=== PATIENT | female | born 1945 | race Caucasian/White ===

== ENCOUNTER 2016-08-25 13:26 | Inpatient (IN) | payer MEDICARE, BC ==
[~2016-08-25] VITALS: Ht 167.6 cm; Wt 37.5 kg
[~2016-08-25 13:26] MED LIST: APAP325 MG PO; ASPIRIN EC81 M1 PO; CELEXA20 MG PO; CLARITIN 10 MG10 MG PO; GEODON20 M1 IM; KLONOPIN0.5 MG PO; LEVAQUIN500 MG PO; MILK OF MAGNESI30 ML PO; MYLANTA / MAALO30 ML PO; NAMENDA5 MG PO; PROMOD LIQUID P30 M1 PO; PROMOLAXIN100 MG PO; ROBITUSSIN DM 110 ML PO; SEROQUEL100 MG PO; VISINE15 ML EACH EYE; VITAMIN B-121000 MCG PO
[2016-08-25 14:41] LABS: BASOPHILS 0.4 % (0.0-2.0); EOSINOPHILS 2.1 % (0-7); HEMATOCRIT 49.2 % (36.0-48.0); HEMOGLOBIN 15.5 g/dL (12-16); IMMATURE GRANULOCYTES 0.4 % (0-5); LYMPHOCYTES 19.2 % (15-50); MCHC 31.5 g/dL (31.0-37.0); MCV 104.7 fL (80.0-100.0); MEAN PLATELET VOLUME 13.3 fL (7.4-10.4); MONOCYTES 8.5 % (2-11); NEUTROPHILS 69.4 % (40-80); RDW 16.1 % (11.5-14.5); WBC 8.6 10x3/uL (4.8-10.8)
[2016-08-25 14:42] LABS: PLATELET COUNT 154 10x3/uL (130-400)
[2016-08-25 15:16] LABS: ALBUMIN 3.7 g/dL (3.4-5.0); BILIRUBIN - TOTAL 0.67 mg/dL (0.2-1.3); CALCIUM 8.9 mg/dL (8.5-10.1); CARBON DIOXIDE 27.8 mmol/L (21.0-32.0); CREATININE - SERUM 1.6 mg/dL (0.6-1.3); POTASSIUM - SERUM 3.3 mmol/L (3.5-5.1)
[2016-08-25 15:30] LABS: APPEARANCE HAZY (CLEAR); BILIRUBIN NEGATIVE (NEGATIVE); COLOR YELLOW (YELLOW); GLUCOSE NEGATIVE (NEGATIVE); KETONE NEGATIVE (NEGATIVE); LEUKOCYTE ESTERASE 2+ (NEGATIVE); NITRITE POSITIVE (NEGATIVE); PROTEIN TRACE mg/dL (NEGATIVE); SPECIFIC GRAVITY 1.025 (1.005-1.020); UROBILINOGEN NORMAL (NORMAL)
[2016-08-25 15:31] LABS: UDS - AMPHET NEGATIVE QUAL (NEGATIVE); UDS - BARB NEGATIVE QUAL (NEGATIVE); UDS - BENZO NEGATIVE QUAL (NEGATIVE); UDS - COCAINE NEGATIVE QUAL (NEGATIVE); UDS - METH NEGATIVE QUAL (NEGATIVE); UDS - OPIATE NEGATIVE QUAL (NEGATIVE); UDS - PCP NEGATIVE QUAL (NEGATIVE); UDS - THC NEGATIVE QUAL (NEGATIVE)
[2016-08-25 15:32] LABS: ANION GAP 12.5 mmol/L (8-16)
[2016-08-25 15:32] LABS: BACTERIA MANY /hpf (NONE SEEN); EPITHELIAL CELLS 0-5 /hpf (0-5); RED CELLS - URINE 0-5 /hpf (0-5); WHITE CELLS - URINE 25-50 /hpf (0-5)
--- NOTE | 2016-08-25 18:52 | NUR ---
RECEIVED PT VIA BED FROM ER NURSE. PT SLEEPING ON ARRIVAL. IV SEEN TO LEFT WRIST. CEFTRIAXONE RESTARTED PER ORDER WHEN GOT TO ROOM. ROUSE SEEN WITH CLOULDY YELLOW URINE. PT IS NON-VERBAL. FAMILY MEMBERS ARE AT BEDSIDE. WILL CONTINUE TO MONITOR.
[2016-08-25] MEDS ORDERED: ARICEPT5 MG PO (19:20)
[2016-08-25] MEDS ORDERED: PROMOD LIQUID P30 M1 PO (19:20)
[2016-08-25] MEDS ORDERED: ATIVAN1 MG PO (19:20)
--- NOTE | 2016-08-25 19:23 | NUR ---
CALL PLACED FOR DNR CODE STATUS THIS IS FROM THE [facility]. NEW ORDERS RECEIVED.
[2016-08-25 19:39] VITALS: BP 136/79
[2016-08-25 22:07] VITALS: BP 136/79
[2016-08-25 23:13] VITALS: BP 124/66
[2016-08-26 02:42] VITALS: BP 136/79; BMI 11.9
[2016-08-26 04:04] VITALS: BP 122/83
--- NOTE | 2016-08-26 05:01 | NUR ---
NURSE ROUNDS 20:00 - PT LYING IN BED, LYING ON HER STOMACH, EYES CLOSED, RESPIRATIONS EVEN AND UNLABORED. PT WILL NOT OPEN HER EYES, BUT DOES WITHDRAW WHEN TOUCHED. CONTINUE TO MONITOR CLOSELY. BED LOW, CALL LIGHT IN REACH, SIDE RAILS X 2, HOB 20 DEGREES, BED ALARM ON.
--- NOTE | 2016-08-26 05:40 | NUR ---
PT LYING IN BED, EYES CLOSED, RESPIRATIONS EVEN AND UNLABORED. PT STILL NOT ROUSABLE TO VERBAL STIMULI, BUT DOES WITHDRAW HER HANDS WHEN TOUCHED. PT DID REFUSE TO HAVE HER AM LABS DRAWN. CONTINUE TO MONITOR CLOSELY. BED LOW, CALL LIGHT IN REACH, SIDE RAILS X 2, HOB 20 DEGREES.
--- NOTE | 2016-08-26 07:37 | NUR ---
AM ROUNDING- PT LAYING IN BED ON BACK RESTING, MUMBLING TO HERSELF. PT IS NON-VERBAL PER REPORT FROM PAD EXTRACTION TENDER NURSEKHANG. IV SEEN TO LEFT WRIST WITH D5 1/2 NS W 10 K+ RUNNING AT 125CC. ON ROOM AIR. PT IS DISORIENTED/CONFUSED PER REPORT FROM PAD EXTRACTION TENDER NURSEKHANG. PT IS A TOTAL ASSIST. ROUSE CATHETER WITH CLOUDY YELLOW URINE SEEN. REFUSED SCDS PER REPORT FROM PAD EXTRACTION TENDER NURSE KHANG. BED ALARM IS ON, SIDE RAILS ARE UP. NO NEED AT THIS TIME. WILL CONTINUE TO MONITOR.
[2016-08-26 07:56] VITALS: BP 131/109
--- NOTE | 2016-08-26 07:59 | NUR ---
IV FLUIDS DECREASED TO 50CC/HR ORDERED. WILL CONTINUE TO MONITOR.
--- NOTE | 2016-08-26 08:06 | NUR ---
PT IN STAT ORDERS FOR BMP ORDERED AND CALLED LAB TO LET THEM KNOW WE WILL NEED AT STAT BMP. LAB STATED THEY WILL BE RIGHT UP.
[2016-08-26 08:33] LABS: BASOPHILS 0.3 % (0.0-2.0); EOSINOPHILS 4.3 % (0-7); HEMATOCRIT 48.2 % (36.0-48.0); HEMOGLOBIN 14.7 g/dL (12-16); IMMATURE GRANULOCYTES 0.4 % (0-5); LYMPHOCYTES 21.5 % (15-50); MCH 32.5 pg (26.0-34.0); MCHC 30.5 g/dL (31.0-37.0); MCV 106.4 fL (80.0-100.0); MEAN PLATELET VOLUME 13.2 fL (7.4-10.4); MONOCYTES 6.3 % (2-11); NEUTROPHILS 67.2 % (40-80); PLATELET COUNT 159 10x3/uL (130-400); RBC 4.53 10x6/uL (4.00-5.40); RDW 16.3 % (11.5-14.5); WBC 10.6 10x3/uL (4.8-10.8)
--- NOTE | 2016-08-26 08:53 | NUR ---
DR. GOLDSMITH CALLED TO SEE WHAT LAB (BMP) RESULTS WERE. INFORMED HIM THAT THEY ARE STILL PENDING. DR. ANDERSON STATED TO D/C FLUIDS B/C NA+ IS TOO HIGH. REQUESTED TO CALL HIM BACK SOON LABS RESULTS WERE RECEIVED OR TO NOTIFY DR. ABREU SOON LAB RESULTS WERE BACK IF HE DID NOT ANSWER. D/C PTS FLUIDS ORDERED. AWAITING LAB RESULTS. WILL CONTINUE TO MONITOR.
[2016-08-26 08:59] LABS: CALCIUM 8.3 mg/dL (8.5-10.1); CARBON DIOXIDE 28.4 mmol/L (21.0-32.0); POTASSIUM - SERUM 3.7 mmol/L (3.5-5.1)
[2016-08-26 09:01] LABS: ANION GAP 13.3 mmol/L (8-16); CREATININE - SERUM 1.1 mg/dL (0.6-1.3)
--- NOTE | 2016-08-26 09:07 | NUR ---
899- PAGED DR. ANDERSON WITH LAB RESULTS. 904- DR. ANDERSON CALLED BACK. INFORMED HIM THAT LABS WERE FOLLOWS: NA+ 171 CH- 133 K+- 3.7 DR. ANDERSON STATED TO INCREASE IV FLUIDS TO 150CC/HR AND ORDER BMP IN EXACTLY 6 HOURS. LABS ORDERED FOR 1500, IV FLUIDS INCREASED TO 150CC/HR. WILL CONTINUE TO MONITOR.
--- NOTE | 2016-08-26 09:56 | NUR ---
PAGED DR. ANDERSON TO CLARIFY IV FLUID ORDER. AWAITING CALLBACK WILL CONTINUE TO MONITOR.
--- NOTE | 2016-08-26 10:04 | NUR ---
COMBATIVE AND REFUSING SCD'S
[2016-08-26 11:37] VITALS: BP 125/86
--- NOTE | 2016-08-26 11:49 | NUR ---
1010- MANDO, NURSE FROM THE [facility] CALLED TO CHECK ON PT.
[2016-08-26 12:25] VITALS: Ht 167.6 cm; Wt 37.5 kg
--- NOTE | 2016-08-26 15:16 | NUR ---
PRODUCTION PLANNER SCHEDULER CAME TO INFORM ME THAT PTS B/P WAS 193/86. I THEN WENT AND INFORMED AC BERRY NP THAT WAS ON UNIT. AC CAME BACK TO ME AND STATED TO RE-CHECK PTS B/P SINCE THAT WAS THE ONLY ONE THAT HAS BEEN HIGH AT THIS TIME. ANNETTA QUINTERO IS RECHECKING B/P NOW. WILL CONTINUE TO MONITOR.
--- NOTE | 2016-08-26 15:29 | NUR ---
PLACED MONITOR ON PT. SHOWING SR, HR 86.
[2016-08-26 15:40] VITALS: BP 137/66
[2016-08-26 15:59] LABS: ANION GAP 10.8 mmol/L (8-16); CALCIUM 8.2 mg/dL (8.5-10.1); CARBON DIOXIDE 28.4 mmol/L (21.0-32.0); CREATININE - SERUM 1.2 mg/dL (0.6-1.3); HEMOGLOBIN A1C 5.7 % (4.8-6.0); POTASSIUM - SERUM 3.2 mmol/L (3.5-5.1)
--- NOTE | 2016-08-26 16:02 | NUR ---
LAB CALLED TO REPORT TO ME A CRTICAL LAB. NA+ 166 CHLORIDE 130 WILL CONTINUE TO MONITOR.
--- NOTE | 2016-08-26 16:15 | NUR ---
PAGED DR. ANDERSON REGARDING PTS CRITCAL LAB. AWAITING CALLBACK.
--- NOTE | 2016-08-26 16:50 | NUR ---
Patient Name: JUAN M GARDNER Admission Status: ER Accout number: [id number] Admission Date: 08-25-2016 : 1945 Admission Diagnosis: Attending: [place] Current LOS: 1 Anticipated DC Date: Planned Disposition: Assisted Living Primary Insurance: MEDICARE A & B PLANNED EXTERNAL PROVIDER: [facility] Discharge Planning Comments: * Is the patient Alert and Oriented? No 0 * How many steps to enter\exit or inside your home? NONE 0 * PCP [facility] 0 * Pharmacy [facility] 0 * Preadmission Environment Assisted Living 0 * Facility Name [facility] 0 * ADLs Partial Dependent 0 * Partial ADLs (Assistance needed) Eating Medication Management 0 * Equipment None 0 * Other Equipment NO MEDICAL EQUIPMENT PROVIDER PREFERENCE 0 * List name and contact numbers for known caregivers / representatives who currently or will assist patient after discharge: HENRY GARDNER, SPOUSE, 0 * Community resources currently utilized Assisted Living 0 * Please name any agencies selected above. [facility] [phone] 0 * Additional services required to return to the preadmission environment? No 0 * Can the patient safely return to the preadmission environment? Yes 0 * Has this patient been hospitalized within the prior 30 days at any hospital? No 0 CM MET WITH PT AND SPOUSE IN ROOM TO DISCUSS DISCHARGE PLANNING AND NEEDS. PT CONFUSED. SPOUSE REPORTS PT LIVING AT [facility] FOR THE PAST TWO YEARS.. PT HAS NO MEDICAL EQUIPMENT AND NO OUTSIDE SERVICES ASSISTING IN THE FACILITY. PT HAS 24 HOUR 7 DAYS WEEKLY CAREGIVER ASSISTANCE. CM DISCUSSED AVAILABILITY OF HOME HEALTH, REHAB SERVICES AND MEDICAL EQUIPMENT. SPOUSE DENIES DISCHARGE NEEDS AT THIS TIME. PT'S SPOUSE REPORTS THAT STAFF AT [facility] HAS RECENTLY CHANGED AND THE CURRENT STAFF ARE NOT USED TO CARING FOR PT AND HE IS HOPEFUL THAT THAT WILL CHANGE QUICKLY. HE FEELS HIS IS SAFE AND THE [facility] AND SHE WILL RETURN THERE AT DISCHARGE. IMPORTANT MESSAGE FROM MEDICARE PROVIDED AND EXPLAINED. FOR DISCHARGE, NURSE REPORT TO BE CALLED TO THE [facility] AT [phone]; FAX DISCHARGE INFORMATION TO THE [facility] AT [phone]. IF PT IS ABLE TO TRANSPORT SAFELY VIA VAN, [facility] TO [facility]ANGE [facility], OTHERWISE, PT MAY HAVE TO TRANSPORT VIA AMBULANCE FOR HER SAFETY. Nephrologist: Alfa Melvin
--- NOTE | 2016-08-26 18:33 | NUR ---
PT LAYING IN BED RESTING, FAMILY MEMBERS AT BEDSIDE. BED ALARM IS ON. NO NEED AT THIS TIME. WILL CONTINUE TO MONITOR.
--- NOTE | 2016-08-26 19:03 | NUR ---
WHILE TRYING TO GIVE PT PRN MEDICINE CRUSHED UP WITH WARM WATER, PT SPIT IT UP WHILE COUGHING AND SOME OF THE SECRETIONS WENT INTO MY MOUTH. CRYOGENICS ENGINEER NOTIFIED. GOING TO CHOKE SETTER OFFICE WHEN DONE WITH REPORT.
[2016-08-26 20:57] VITALS: BP 195/70
[2016-08-26 23:00] LABS: CARBON DIOXIDE 27.8 mmol/L (21.0-32.0); CREATININE - SERUM 1.1 mg/dL (0.6-1.3); POTASSIUM - SERUM 3.5 mmol/L (3.5-5.1)
[2016-08-26 23:06] LABS: ANION GAP 10.7 mmol/L (8-16)
--- NOTE | 2016-08-26 23:36 | NUR ---
DR. ANDERSON JUST CALLED INQUIRING ABOUT PTS LABS, AND GAVE TELEPHONE ORDER TO DECREASE FLUIDS TO 100MLS/HR.
--- NOTE | 2016-08-26 23:38 | NUR ---
DR. ANDERSON CALLED BACK, WANTS FLUIDS DECREASED TO 20MLS/HR.
[2016-08-27 00:34] VITALS: BP 134/78
--- NOTE | 2016-08-27 02:18 | NUR ---
NURSE ROUNDS 19:30 - PT LYING IN BED, EYES CLOSED, RESPIRATIONS EVEN AND UNLABORED, DEMONSTRATING LETHARGY, HARD TO ROUSE. PT IS CONFUSED AND DISORIENTED X 3, UNABLE TO FOLLOW SIMPLE COMMANDS. PT DID REFUSE HER 2100 MEDICATIONS, SHE WOULD NOT COOPERATE OR ATTEMPT TO TAKE THEM. IV INFUSING, ROUSE CATH IN PLACE. CONTINUE TO MONITOR CLOSELY. BED LOW, CALL LIGHT IN REACH, SIDE RAILS X 2, HOB 20 DEGREES, BED ALARM ON.
[2016-08-27 04:31] VITALS: BP 130/46
[2016-08-27 05:55] LABS: BASOPHILS 0.3 % (0.0-2.0); HEMOGLOBIN 11.8 g/dL (12-16); IMMATURE GRANULOCYTES 1.1 % (0-5); LYMPHOCYTES 23.9 % (15-50); MCH 32.2 pg (26.0-34.0); MCHC 30.9 g/dL (31.0-37.0); MEAN PLATELET VOLUME 13.7 fL (7.4-10.4); MONOCYTES 5.7 % (2-11); RBC 3.66 10x6/uL (4.00-5.40); RDW 15.8 % (11.5-14.5)
[2016-08-27 06:17] LABS: CALCIUM 7.9 mg/dL (8.5-10.1); CARBON DIOXIDE 24.6 mmol/L (21.0-32.0)
[2016-08-27 06:23] LABS: HEMATOCRIT 38.2 % (36.0-48.0); MCV 104.4 fL (80.0-100.0); PLATELET COUNT 124 10x3/uL (130-400); WBC 7.2 10x3/uL (4.8-10.8)
[2016-08-27 06:47] LABS: ANION GAP 13.3 mmol/L (8-16)
[2016-08-27 06:48] LABS: POTASSIUM - SERUM 2.9 mmol/L (3.5-5.1)
[2016-08-27 07:40] VITALS: BP 121/59
[2016-08-27 07:55] LABS: MAGNESIUM - SERUM 2.2 mg/dL (1.8-2.4); PHOSPHOROUS 2.6 mg/dL (2.5-4.9)
--- NOTE | 2016-08-27 08:03 | NUR ---
INITIATED PIGGY BACK POTASSIUM ORDERED FOR LOW K OF 2.9. PT IS VERY LETHARGIC AND WOULDNT WAKE UP ENOUGH TO EAT OR SWALLOW HER PILLS AT THIS TIME, WILL TRY AGAIN SOON.
[2016-08-27 10:21] LABS: CALCIUM 8.2 mg/dL (8.5-10.1); CARBON DIOXIDE 27.2 mmol/L (21.0-32.0); CREATININE - SERUM 0.9 mg/dL (0.6-1.3); MAGNESIUM - SERUM 2.2 mg/dL (1.8-2.4)
[2016-08-27 10:22] LABS: ANION GAP 12.8 mmol/L (8-16)
[2016-08-27 11:48] VITALS: BP 121/43
--- NOTE | 2016-08-27 15:14 | NUR ---
PATIENT RESTING QUIETLY WITH EYES CLOSED, RESPIRATIONS DEEP AND EVEN. HER DAUGHTER IS AT THE BEDSIDE WITH MANY QUESTIONS. ANSWERED I COULD. AMALIA DID NOT AWAKE TO EAT LUNCH. ATE MOST BKFST AND 100% OF SUPPER LAST NIGHT PER HER STATEMENT. ROUSE PATENT TO BEDISDE DRAINAGE. IVF INFUSING PER ORDERS.
--- NOTE | 2016-08-27 16:14 | CN ---
PATIENT NAME:JUAN M GARDNER MEDICAL RECORD: [id number] : 41 LOCATION:D. D.2105 ADMIT DATE: 08/25/16 ACCOUNT: [id number] CONSULTING PHYSICIAN: MIHAELA ANDERSON MD REFERRING PHYSICIAN: DEVIN RAMÍREZ M.D. DATE OF CONSULTATION: 08/25/2016 Renal Consultation REASON FOR CONSULTATION: hypernatremia, cystitis on admission, confusion, lethargy, weakness, Alzheimer dementia, and depression. HISTORY OF PRESENT ILLNESS: This is a 71-year-old female that was admitted from the [facility] with a past medical history of Alzheimer dementia, COPD, depression, cystitis, weakness, confusion, and lethargy and had fell on Thursday. She presented to the Emergency Room with acute kidney injury and severe hypernatremia with a ____. Unfortunately, severe, sodium level in is magnitude will undoubtedly cause neurological sequelae. REVIEW OF SYSTEMS: As above and unattainable from the patient. PAST MEDICAL HISTORY: Alzheimer dementia, COPD, depression, B12 deficiency, allergic rhinitis, and chronic constipation. HOME MEDICATIONS: Documented in the H&P. Ativan 1 mg q.i.d. p.r.n. agitation, Aricept 5 mg q.h.s., ProMod liquid 30 mg p.o. daily, Claritin 10 mg daily, B12 of 1000 mcg p.o. daily, docusate sodium 100 mg b.i.d., aspirin 81 a day, Klonopin 0.5 at bedtime, Celexa 20 daily, Seroquel 100 b.i.d., Visine p.r.n., Milk of magnesia 30 mL p.r.n., ____ Maalox plus 50 mL p.r.n. q.4 hours, Robitussin-DM 10 mL q.4 hours p.r.n. congestion, and Tylenol 650. She is on Namenda 10 mg b.i.d. FAMILY HISTORY: Unobtainable and the H&P is unobtainable as well. PAST SURGICAL HISTORY: Not listed in the H&P and is unobtainable. The past medical history has been obtained from her H&P. ALLERGIES: NKDA per 09/03/2015. PHYSICAL EXAMINATION: VITAL SIGNS: Blood pressure 136/79. 100 Pulse ox, 76 pulse, 16 respiratory rate, 98.6 temperature. GENERAL: Altered mental status. HEENT: Anicteric. Mucous membranes are moist. She does not follow commands. Pupils react to light. Extraocular muscles are intact. NECK: Nontender. No JVD or lymphadenopathy. No meningeal signs. CHEST: Regular rhythm. S1 and S2. Clear lungs bilaterally. EXTREMITIES: +2 femoral pulses, +2 brachial pulses even and bilateral. ABDOMEN: Soft and nontender. No appreciable hepatosplenomegaly. SKIN: Decreased skin turgor. Dry mucous membranes. GENITOURINARY: Aguilar catheter to gravity. LABORATORY DATA: On admission, white blood cell count 8600, H&H 15.5 and 49 with an MCV of 104 and a platelet count of 154. Sodium was 172. Urinalysis: specific gravity 102.5, trace protein, positive nitrite, 25-50 white blood cells CONSULT REPORT [id number] JUAN M GARDNER with many bacteria. The rest of the chemistry is documented in the chart. ASSESSMENT AND PLAN: 1. Hypernatremia with intravascular volume depletion. Hypotonic IV fluids with KCl. We will have to monitor her sodium level and currently, her rate is at 125. 2. Alzheimer dementia, now with hypernatremia, the severe level, unknown duration of hypernatremia. 3. Chronic constipation per her medications. 4. Allergic rhinitis per her medications. She has been on Visine. 5. Altered mental status due to cystitis. 6. Cystitis on admission. She has been started on antibiotics and urine culture have been submitted. 7. Suspect protein malnutrition when she is corrected with IV fluids as her hematocrit is 49. 8. Acute kidney injury. IV hydration along with cystitis. We will follow her BUN and creatinine. PLAN: 1. Hypotonic IV fluids D5 half normal saline with 10 mEq of KCl at 125 an hour. 2. Monitor electrolytes and BMP. 3. We will follow with you. 4. Follow up urine culture results. 5. Very critically ill and is a DNR, otherwise she would be in the intensive care unit. TRANSINT:[id number] Voice Confirmation ID: [id number] DOCUMENT ID: [id number] MIHAELA ANDERSON MD at 1614 CC: [id number] DICTATION DATE: 08/27/16702 HANDICAPPER HARNESS RACING: 08/27/16 0736 ADM IN [facility] [address] [id number]
[2016-08-27 16:18] VITALS: BP 116/52
[2016-08-27 16:42] LABS: ANION GAP 13.6 mmol/L (8-16); CALCIUM 8.1 mg/dL (8.5-10.1); CREATININE - SERUM 0.8 mg/dL (0.6-1.3); MAGNESIUM - SERUM 2.3 mg/dL (1.8-2.4); POTASSIUM - SERUM 3.6 mmol/L (3.5-5.1)
--- NOTE | 2016-08-27 19:02 | NUR ---
IV RESITED TO THE LEFT AC X1 ATTEMPT. AND DAUGHTER AT THE BEDSIDE. SHE ATE VERY LITTLE OF HER SUPPER. SHE IS WITHOUT S/S OF PAIN/ DISTRESS.
--- NOTE | 2016-08-27 21:07 | NUR ---
PT LYING IN BED, CONFUSED, REACHING INTO THEIR TRYING TO GRAB AT SOMETHING THAT IS UNSEEN. PTS /FAMILY MEMBER WAS IN THERE WHEN I ROUNDED AT 19:15, AND STATED THERE HAVE BEEN SEVERAL NEW ISSUES WITH PT SINCE THERE HAVE BEEN SOME STAFFING CHANGES AT THE [facility] RECENTLY. DENIES ANY NEEDS FOR PT. BED ALARM IS ON. CONTINUE TO MONITOR CLOSELY.
[2016-08-27 22:01] VITALS: BP 118/75
[2016-08-28 01:10] VITALS: BP 134/78
--- NOTE | 2016-08-28 01:27 | NUR ---
PT LYING IN BED, EYES CLOSED, RESPIRATIONS EVEN AND UNLABORED. PT BECOMES COMBATIVE WHEN TRYING TO REPOSITION HER BUT OTHERWISE IS QUIET. CONTINUE TO MONITOR CLOSELY. BED LOW, CALL LIGHT IN REACH, SIDE RAILS X 2, HOB 20 DEGREES, BED ALARM ON.
[2016-08-28 02:40] LABS: HEMOGLOBIN 11.7 g/dL (12-16); MCH 32.7 pg (26.0-34.0); MCHC 33.4 g/dL (31.0-37.0); MEAN PLATELET VOLUME 12.1 fL (7.4-10.4); NEUTROPHILS 59.3 % (40-80); PLATELET COUNT 118 10x3/uL (130-400); RBC 3.58 10x6/uL (4.00-5.40); RDW 14.4 % (11.5-14.5); WBC 6.2 10x3/uL (4.8-10.8)
[2016-08-28 02:43] LABS: MCV 97.8 fL (80.0-100.0)
--- NOTE | 2016-08-28 02:46 | NUR ---
RECHEDULING ADDED LABS SO PT WILL NOT HAVE TO ENDURE MULTIPLE NEEDLE STICKS
[2016-08-28 02:55] LABS: CREATININE - SERUM 0.8 mg/dL (0.6-1.3); MAGNESIUM - SERUM 2.1 mg/dL (1.8-2.4); PHOSPHOROUS 2.7 mg/dL (2.5-4.9)
[2016-08-28 02:56] LABS: ANION GAP 10.7 mmol/L (8-16); POTASSIUM - SERUM 2.7 mmol/L (3.5-5.1)
[2016-08-28 05:03] VITALS: BP 134/71
[2016-08-28 08:00] VITALS: BP 122/92
--- NOTE | 2016-08-28 08:28 | NUR ---
PTS POTASSIUM LOW 2.9 TRIED TO REPLACE PER ELECTROLYTE PROTOCOL HOWEVER PT REFUSED TO LET ME SEE HER IV. PUMP KEEPS SAYING OCCLUDED AND HER IV IS IN HER L.AC BUT PT KEEPS HER ARMS BENT AND STARTING YELLING "NO, WHY ARE YOU TRYING ME" TRIED TO REORIENT PT HOWEVER SHE CONTINUES TO KEEP HER ARM STIFF AND NOT ALLOW ME TO MESS WITH IT. WILL ALLOW HER TO REST AND TRY AGAIN SOON, MAYBE BETTER WHEN FAMILY IS BACK UP HERE. NO FURTHER NEEDS AT THIS TIME. CL IN REACH. BED IN LOWEST, SIDE RAILS X2 AND BUILT IN BED ALARM ON. WILL CPOC.
--- NOTE | 2016-08-28 10:20 | NUR ---
Nutrition Follow Up: Chart reviewed. Pt is confused and combative at times. Diet: No added salt; regular solids with honey thick liquids PO Intake: 42% (3 meal avg) I>O +BM 08/26/16 Labs and meds noted Pt with fair po intake at this time. Rec changing diet to Regular (instead of SAM) with regular solids and honey thick liquids per EQUITY DIRECTOR. Will send Mighty Shakes with meals. RD following.
--- NOTE | 2016-08-28 11:10 | NUR ---
ADMINISTERED MORNING MEDICATIONS CRUSHED IN APPLESAUCE WITH THE ASSISTANCE OF PTS DAUGHTER. PT DOES MUCH BETTER WITH FAMILY AT BEDSIDE. D/C PTS L.AC PIV WITH CATHETER TIP FULLY INTACT. SITE WAS INFLITRATED. UNABLE TO SITE NEW ACCESS R/T PT NOT HAVING ANY NOTICEABLY VEINS. CALLED VASCULAR NURSE TO TRY FOR IV AND ALSO DRAW BLOOD R/T LAB NOT BEING ABLE TO FIND A VEIN TO DRAW FROM. PT STILL VERY DEHYDRATED WITH VERY POOR INTAKE. NEW STAT LOC PLACED TO PTS L.INNER THIGH R/T OLD STAT LOC BREAKING. PT RESTING QUIETLY IN BED WITH DAUGHTER AT BEDSIDE. PT IS STILL VERY DISORIENTED/CONFUSED BUT SHE IS CURRENTLY BEING VERY SWEET AND COOPERATIVE. NO FURTHER NEEDS AT THIS TIME. CL IN REACH, BED IN LOWEST, SIDE RAILS X2 WITH BUILT IN BED ALARM ON. WILL CPOC.
[2016-08-28 12:00] VITALS: BP 119/58
--- NOTE | 2016-08-28 13:32 | NUR ---
VASCULAR NURSE GOT ACCESS VIA L.FA. WILL NOW INTIATED EP FOR POTASSIUM REPLACEMENT.
--- NOTE | 2016-08-28 13:57 | NUR ---
ATTEMPTED TO CALL [facility] HOWEVER NURSES WERE "IN A MEETING" AND REQUESTED I CALL BACK IN 20-30 MINS. WILL TRY THEN.
[2016-08-28 14:23] LABS: CALCIUM 8.3 mg/dL (8.5-10.1); CARBON DIOXIDE 30.6 mmol/L (21.0-32.0); CREATININE - SERUM 0.9 mg/dL (0.6-1.3); MAGNESIUM - SERUM 2.2 mg/dL (1.8-2.4)
[2016-08-28 14:27] LABS: ANION GAP 9.7 mmol/L (8-16); POTASSIUM - SERUM 3.3 mmol/L (3.5-5.1)
[2016-08-28 16:00] VITALS: BP 137/52
--- NOTE | 2016-08-28 20:00 | NUR ---
CONTACTED BY [facility]. INSTRUCTED TO INCREASE IV FLUIDS TO 75ML/HR. AND TO CONTACT IF SODIUM LEVEL INCREASES
[2016-08-28 20:54] LABS: CALCIUM 7.9 mg/dL (8.5-10.1); CARBON DIOXIDE 29.2 mmol/L (21.0-32.0); CREATININE - SERUM 1.1 mg/dL (0.6-1.3); POTASSIUM - SERUM 3.2 mmol/L (3.5-5.1)
[2016-08-29] VITALS: BP 142/75; BP 156/80
--- NOTE | 2016-08-29 00:25 | NUR ---
OPTOMETRY TEACHER AT BEDSIDE TO OBTAIN VITALS, CALL LIGHT IN REACH. WILL CONTINUE WITH PLAN OF CARE.
[2016-08-29 02:42] LABS: BASOPHILS 0.2 % (0.0-2.0); EOSINOPHILS 6.3 % (0-7); HEMOGLOBIN 11.7 g/dL (12-16); IMMATURE GRANULOCYTES 1.7 % (0-5); LYMPHOCYTES 25.3 % (15-50); MCH 32.1 pg (26.0-34.0); MCHC 31.6 g/dL (31.0-37.0); MEAN PLATELET VOLUME 12.2 fL (7.4-10.4); MONOCYTES 7.3 % (2-11); NEUTROPHILS 59.2 % (40-80); PLATELET COUNT 123 10x3/uL (130-400); RBC 3.65 10x6/uL (4.00-5.40); RDW 14.6 % (11.5-14.5); WBC 5.9 10x3/uL (4.8-10.8)
[2016-08-29 02:44] LABS: MCV 101.4 fL (80.0-100.0)
[2016-08-29 02:55] LABS: ANION GAP 9.8 mmol/L (8-16); CALCIUM 8.1 mg/dL (8.5-10.1); CARBON DIOXIDE 28.5 mmol/L (21.0-32.0); PHOSPHOROUS 2.7 mg/dL (2.5-4.9); POTASSIUM - SERUM 3.3 mmol/L (3.5-5.1)
--- NOTE | 2016-08-29 07:40 | NUR ---
ASSESSMENT DONE. PT SLEEPING. AROUSED PT BY SHAKING. NO DISTRESS NOTED. BED DOWN, SIDE RAILS UP X2. CALL LIGHT WITH INREACH. WILL CONT. TO MONITOR.
[2016-08-29 08:00] VITALS: BP 146/71
--- NOTE | 2016-08-29 08:55 | NUR ---
PT'S DAUGHTER HERE ATTEMPTINGT TO FEED BREAKFAST.
--- NOTE | 2016-08-29 09:40 | NUR ---
FAMILY MEMBER ASSISTS WITH MEAL. WILL MONITOR NEEDS.
[2016-08-29 12:00] VITALS: BP 97/41
--- NOTE | 2016-08-29 18:17 | NUR ---
PT SLEEPING. FAMILY IN ROOM. NO DISTRESS NOTED. APPEARS COMFORTABLE. WILL CONT. TO MONITOR.
--- NOTE | 2016-08-29 18:50 | NUR ---
PT ATTEMPTING TO GET OUT OF BED. SCREAMING PLEASE HELP ME. PULLING AT ROUSE AND LINE. STAFF SITTING IN ROOM WITH PT ATTMEPTING TO CALM PT.
[2016-08-29 19:24] LABS: ANION GAP 11.5 mmol/L (8-16); CALCIUM 8.5 mg/dL (8.5-10.1); CARBON DIOXIDE 30.7 mmol/L (21.0-32.0); POTASSIUM - SERUM 3.2 mmol/L (3.5-5.1)
--- NOTE | 2016-08-29 19:50 | NUR ---
PT PLACED ON MENA PAD. PT NEARLY OUT OF BED WITH BED ALARM ARMED AND NOT SOUNDING. CHANGED PT BMP TO Q8 PER NURSING MESSAGE PLACED BY DR ANDERSON ON 08/29
[2016-08-29 22:35] VITALS: BP 117/45
--- NOTE | 2016-08-30 01:14 | NUR ---
PT RESTING SOUNDLY WITHOUT C/O OR DISTRESS NOTED. CALL LIGHT IS WITHIN REACH. NO NEEDS VOICED. WILL MONITOR.
[2016-08-30 05:59] VITALS: BP 116/65
--- NOTE | 2016-08-30 07:37 | NUR ---
LAYING ON RIGHT SIDE WITH HEAD COVERED SLIGHTLY, REMOVED COVERS AND PATIENT IS RESTING WITH EYES CLOSED. RESP ARE EVEN AND NON LABORED. ON HEART MONITOR SHOWING SR, HR 75. LEFT FA SEEN WITH D 5 1/2 NS INFUSING AT 75 CC/HR. ROUSE CATH PATENT WITH CLEAR YELLOW URINE. DNR CODE STATUS, WILL CONTINUE TO MONITOR.
[2016-08-30 08:00] VITALS: BP 115/51
[2016-08-30 08:48] LABS: BASOPHILS 0.4 % (0.0-2.0); EOSINOPHILS 7.1 % (0-7); HEMATOCRIT 35.3 % (36.0-48.0); HEMOGLOBIN 11.4 g/dL (12-16); IMMATURE GRANULOCYTES 1.8 % (0-5); LYMPHOCYTES 28.6 % (15-50); MCH 31.9 pg (26.0-34.0); MCHC 32.3 g/dL (31.0-37.0); MONOCYTES 7.7 % (2-11); NEUTROPHILS 54.4 % (40-80); PLATELET COUNT 126 10x3/uL (130-400); RBC 3.57 10x6/uL (4.00-5.40); RDW 14.6 % (11.5-14.5); WBC 4.9 10x3/uL (4.8-10.8)
[2016-08-30 08:49] LABS: MCV 98.9 fL (80.0-100.0)
[2016-08-30 09:02] LABS: CARBON DIOXIDE 27.3 mmol/L (21.0-32.0); CREATININE - SERUM 0.8 mg/dL (0.6-1.3); PHOSPHOROUS 2.6 mg/dL (2.5-4.9); POTASSIUM - SERUM 3.3 mmol/L (3.5-5.1)
[2016-08-30 12:33] VITALS: BP 107/71
[2016-08-30 12:45] LABS: CALC OSMOLALITY 299 mosm/kg (275-300); CALCIUM 8.4 mg/dL (8.5-10.1); CARBON DIOXIDE 30.5 mmol/L (21.0-32.0); CHLORIDE - SERUM 113 mmol/L (98-107); CREATININE - SERUM 0.7 mg/dL (0.6-1.3); POTASSIUM - SERUM 3.3 mmol/L (3.5-5.1); SODIUM 150 mmol/L (136-145); UREA NITROGEN 13 mg/dL (7-18); eGFR NON AFRICAN AMERICAN 87 mL/min (90-120)
[2016-08-30 12:48] LABS: GLUCOSE 133 mg/dL (74-106)
[2016-08-30 16:00] VITALS: BP 126/75
--- NOTE | 2016-08-30 17:46 | NUR ---
FAMILY MEMBERS AT BEDSIDE. WILL CONTINUE TO MONITOR.
[2016-08-30 20:30] VITALS: BP 131/72
--- NOTE | 2016-08-30 23:31 | NUR ---
AWAKE AND WAVING ARMS IN THE AIR. NO SIGNS/SYMPTOMS OF DISTRESS OR DISCOMFORT. MENA ALARM IS ON.
[2016-08-31 04:30] VITALS: BP 146/67
[2016-08-31 05:08] LABS: BASOPHILS 0.2 % (0.0-2.0); HEMATOCRIT 39.9 % (36.0-48.0); HEMOGLOBIN 13.2 g/dL (12-16); LYMPHOCYTES 11.5 % (15-50); MCH 32.6 pg (26.0-34.0); MCHC 33.1 g/dL (31.0-37.0); MCV 98.5 fL (80.0-100.0); MEAN PLATELET VOLUME 11.9 fL (7.4-10.4); MONOCYTES 5.6 % (2-11); NEUTROPHILS 78.7 % (40-80); PLATELET COUNT 166 10x3/uL (130-400); RBC 4.05 10x6/uL (4.00-5.40); RDW 14.5 % (11.5-14.5); WBC 10.2 10x3/uL (4.8-10.8)
[2016-08-31 05:34] LABS: ANION GAP 12.2 mmol/L (8-16); CALCIUM 8.7 mg/dL (8.5-10.1); CARBON DIOXIDE 28.3 mmol/L (21.0-32.0); CREATININE - SERUM 0.8 mg/dL (0.6-1.3); PHOSPHOROUS 2.2 mg/dL (2.5-4.9); POTASSIUM - SERUM 3.5 mmol/L (3.5-5.1)
--- NOTE | 2016-08-31 07:29 | NUR ---
PT LAYING DOWN IN BED NO S/S DISTRESS NOTED. WILL CONTINUE TO MONITOR.
[2016-08-31 09:00] VITALS: BP 142/53
[2016-08-31 11:58] VITALS: BP 106/52
--- NOTE | 2016-08-31 13:56 | NUR ---
REHAB PRESCREENING Rehab referral received and chart reviewed. PT note from yesterday states patient requires family in room to be in chair. No gait was documented. Nephrology note indicates questionable Peg or Hospice placement due to nutrition issues. Rehab will continue to follow for gait notation of improvement with ambulation and increased nutrition in order to participate in 3 hours of therapy. Thank you for this referral! Geovanna Vela, PURCHASE PRICE ANALYST PD/[facility]hab [facility]
--- NOTE | 2016-08-31 14:33 | NUR ---
PT PIV INFILTRATED. DC WITH CATHETER TIP INTACT. PT IS TOO COMBATIVE TO RESITE. PT IS SUPPOSED TO GO TO REHAB AT SOME POINT TODAY.
[2016-08-31 17:14] VITALS: BP 182/56
--- NOTE | 2016-08-31 17:34 | NUR ---
PT SITTING UP IN BED WITH AT BEDSIDE. CONTENT AT THE MOMENT. PT HAS BEEN COMBATIVE YELLING AND SCREAMING ALL DAY LONG... DENIES NEEDS AT THIS TIME WILL CONTINUE TO MONITOR.
--- NOTE | 2016-08-31 19:28 | NUR ---
Late Entry 1310 DR Diaz spoke with adult protective caseworker. Requesting acute rehab evaluation. TC to Geovanna, the on-call screener. Chart reviewed per her note. No gait documented in physical therapy note. Patient only OOB to the Chair. Question regarding peg is pending and possible hospice per renal documentation. Rehab stated they would follow.
--- NOTE | 2016-08-31 20:06 | NUR ---
PT ASSESSMENT COMPLETED AND BEDSIDE ROUNDING COMPLETED PT INCONTENENT OF BOWEL BRIE LITTLEJOHN IN ROOM AT THIS TIME CLEANING PT AND PT IS SCREAMING AND BECOMING COMBATIVE WILL REASSESS PT AFTER BED BATH COMPLETED.
[2016-08-31 21:13] VITALS: BP 105/59
[2016-09-01 04:30] VITALS: BP 109/64
[2016-09-01 06:33] LABS: ALBUMIN 2.8 g/dL (3.4-5.0); ALKALINE PHOSPHATASE 87 U/L (46-116); ALT (SGPT) 24 U/L (10-68); CALC OSMOLALITY 287 mosm/kg (275-300); CALCIUM 8.5 mg/dL (8.5-10.1); CARBON DIOXIDE 26.4 mmol/L (21.0-32.0); CHLORIDE - SERUM 109 mmol/L (98-107); CREATININE - SERUM 0.6 mg/dL (0.6-1.3); GLUCOSE 85 mg/dL (74-106); PHOSPHOROUS 2.9 mg/dL (2.5-4.9); POTASSIUM - SERUM 3.2 mmol/L (3.5-5.1); PROTEIN - SERUM 5.7 g/dL (6.4-8.2); SODIUM 145 mmol/L (136-145); UREA NITROGEN 12 mg/dL (7-18); eGFR NON AFRICAN AMERICAN > 90 mL/min (90-120)
[2016-09-01 06:35] LABS: BASOPHILS 0.2 % (0.0-2.0); EOSINOPHILS 3.9 % (0-7); HEMATOCRIT 43.5 % (36.0-48.0); HEMOGLOBIN 14.1 g/dL (12-16); IMMATURE GRANULOCYTES 0.8 % (0-5); LYMPHOCYTES 17.7 % (15-50); MCH 31.5 pg (26.0-34.0); MCHC 32.4 g/dL (31.0-37.0); MCV 97.1 fL (80.0-100.0); MEAN PLATELET VOLUME 12.2 fL (7.4-10.4); MONOCYTES 8.3 % (2-11); NEUTROPHILS 69.1 % (40-80); PLATELET COUNT 138 10x3/uL (130-400); RBC 4.48 10x6/uL (4.00-5.40); RDW 14.9 % (11.5-14.5); WBC 6.7 10x3/uL (4.8-10.8)
[2016-09-01 07:35] VITALS: BP 129/61
--- NOTE | 2016-09-01 10:01 | NUR ---
Rehab Note- Patient does not meet criteria for IRF due to decreased mental status & unable to participate in the required therapy. Thank you for this referral! Indu Gaitan RN Clinical Liaison, [facility]
[2016-09-01 11:22] VITALS: BP 90/67
--- NOTE | 2016-09-01 12:00 | NUR ---
AMBULATE IN BASILIO WITH PHYSICAL THERAPY. REFUSE TELEMETRY AND IV. IV ANTIBIOTICS CHANGED TO IM. ROUSE SECURED TO LT INNER THIGH. FAMILY AT BEDSIDE. CONTINUE PLAN OF CARE AND SAFETY PRECAUTIONS.
--- NOTE | 2016-09-01 12:53 | NUR ---
Patient Name: JUAN M GARDNER Encounter No: [id number] : 1945 Primary Insurance: MEDICARE A & B Anticipated DC Date: Planned Disposition: Assisted Living External Planned Provider: [facility] / WITH POSSIBLE HOME HEALTH SERVICES DCP follow-up note: CM RECEIVED CALL FROM [facility] WHO REPORTS THAT INPATIENT REHAB WOULD NOT ACCEPT PT. CM NOTIFIED MILLY BERRY. CM SPOKE TO PT'S SPOUSE IN ROOM, INFORMED OF ABOVE. CM DISCUSSED NURSING HOME REHAB AND HOME HEALTH WITH PHYSICAL THERAPY OPTIONS. PT'S SPOUSE REPORTS THAT PT IS WALKING PLENTY AND STRONG ENOUGH, IT WAS JUST THAT PT WAS NOT EATING ENOUGH ON HER OWN AT THE [facility]. PT'S SPOUSE IS NOT SURE PT NEEDS HOME HEALTH BUT WILL CONSIDER THE OPTION. PT'S SPOUSE IS ALSO GOING TO SPEAK TO STAFF AT THE [facility] REGARDING NEED OF ASSISTANCE TO PT TO ENSURE THEY ARE MEETING HER NEEDS AT THE FACILITY. IMPORTANT MESSAGE FROM MEDICARE PROVIDED AND DISCUSSED. PT'S SPOUSE REPORTS CONTINUED PLAN FOR PT TO RETURN TO THE [facility] AT DISCHARGE, IS CONSIDERING HOME HEALTH SERVICES. CM TO FOLLOW AND ASSIST IF NEEDED. Alfa Melvin, CASE MANAGEMENT
[2016-09-01 15:34] VITALS: BP 133/61
--- NOTE | 2016-09-01 18:01 | NUR ---
CONFUSED. FAMILY AT BEDSIDE. DENIES PAIN OR SOB. ROUSE DRAINING AT BEDSIDE. MENA PAD AND BED ALARM ON. NO CHANGE. CONTINUE PLAN OF CARE. BED LOCKED AND LOW. CALL LIGHT IN REACH. TWO SIDERAILS UP.
--- NOTE | 2016-09-01 20:21 | NUR ---
SINCE BEGINNING MY SHIFT AT 19:00, I HAVE BEEN UNABLE TO ROUND ON OTHER PATIENTS, PULL MEDS, OR DO ANY PATIENT CARE R/T TO MRS. GARDNER'S CONSTANT GETTING UP OF BED, SEVERE COFUSION, DISORIENTATION, AGGITATION, AND INABILITY TO BE REDIRECTED AT THIS TIME. PTS BEHAVIOR WARRANTS THE REMOVAL OF HER ROUSE CATHETER, SHE IS CRAWLING OVER BED RAILS, PULLING AT HER CATHETER, AND HAS ATTEMPTED SEVERAL TIMES TO PULL HER ROUSE CATHETER OUT ON HER OWN. ROUSE HAS BEEN REMOVED, STATLOCK HAS BEEN REMOVED, CONTENTS CONTAIN 200CC OF YELLOW URINE, ROUSE REMOVED WITHOUT DIFFICULTY. BALLOON CONTAINED 10CC OF NS THAT WAS REMOVED AND DEFLATED BEFORE PULLING CATHETER. PT WAS ALSO GIVEN IM HALDOL, WHICH HAS NOT HELPED YET AT THIS TIME. PT REQUIRES ONE ON ONE CONSTANT CARE. WILL CONSULT FAMILY TO SEE IF THEY CAN COME STAY WITH PT DURING THIS TIME. CONTINUE TO MONITOR CLOSELY.
--- NOTE | 2016-09-01 20:54 | NUR ---
SPOKE WITH MR. GARDNER ABOUT HIS REQUIRING ONE ON ONE CARE AT THIS TIME. HE STATED HIS DISSATISFACTION WITH HER CARE, AND ASKED IF PT WAS TAKING THE SAME MEDICATIONS SHE WAS WHILE IN THE [facility]. I REVIEWED THE PTS CURRENT MED LIST WITH WHAT HAS BEEN ORDERED WHILE SHES BEEN HERE, AND HE ASKED WHY SHE WAS NOT GETTING HER ATIVAN. HE STATED THAT SHE TAKES THAT AT THE [facility] AND IT HELPS HER WHEN SHE GETS AGITATED. I EXPLAINED TO PT THAT DR. RAMÍREZ STATED LAST WEEK THAT HE DID NOT WANT HER TAKING ATIVAN AT THIS TIME, WHICH IS WHY SHE HAS NOT BEEN GETTING IT. HALDOL DOES NOT SEEM TO HELP THAT MUCH. I DID PAGE AC BERRY [facility], AT THE REQUEST OF PTS , TO REINSTATE PTS ATIVAN 1MG PO QID PRN. AC BERRY DID AUTHORIZE TO RESTART IT JUST SHE HAS BEEN GETTING IT AT THE [facility]. PT CURRENTLY HAS A REEL TENDER IN THE ROOM WITH HER, THAT WILL STAY UNTIL ARRIVES. LIVES OUT OF TOWN BUT STATES HE WILL BE HERE WITHIN AN HOUR. WILL CONTINUE TO MONITOR CLOSELY. BED LOW, CALL LIGHT IN REACH, SIDE RAILS X 3, HOB 20 DEGREES.
--- NOTE | 2016-09-02 00:56 | NUR ---
PTS DID ARRIVE @ APPROX 21:30 THIS PAST EVENING. PT IS LYING IN BED, AWAKE, ALERT, CONFUSED, DISORIENTED, BUT NOT TRYING TO CLIMB OUT OF BED AT THIS TIME. CHRISTOS ANNETTA HAS BEEN STAYING WITH PT DOING ON ONE ON ONE CARE AND SUPERVISION. PTS , MR. GARDNER, SHOWED GREAT CONCERN FOR THE WELFARE OF HIS , STATING SHE HAS LOST A GREAT AMOUNT OF WEIGHT IN THE LAST COUPLE OF MONTHS, AND THAT SHE HAS HAD TO BE HOSPITALIZED TWICE RECENTLY FOR DEHYDRATION AND UTI. MR. GARDNER DID STATE THAT PT IS NOW BACK AT HER BASELINE, JUST SHE HAS BEEN AT THE [facility] AND FEELS SHE WOULD BE BETTER TO RETURN THERE AT THIS TIME. MR. GARDNER DOES NOT FEEL SHE WILL BE A CANDIDATE FOR REHAB, HE STATED SHE HAS AGGRESSIVE END STAGE DEMENTIA, ALZHEIMERS TYPE AND HAS BEEN THIS WAY FOR A MINIMUM OF TWO YEARS. PT IS UNABLE TO BE REASONED WITH, UNABLE TO UNDERSTAND SIMPLE COMMANDS, UNABLE TO FOLLOW SIMPLE COMMANDS, UNABLE TO BE REORIENTED, AND UNABLE TO COMMUNICATE AT THIS TIME. AT THIS TIME, PT HAS SETTLED DOWN AND ACTUALLY GOING TO SLEEP. MR. GARDNER ASKED IF HE NEEDED TO STAY THE NIGHT, BUT I FELT AT THIS POINT, THE IM HALDOL WAS TAKING EFFECT AND PT WAS GOING TO BE RESTING FOR A WHILE. MR. GARDNER IS CURRENTLY STAYING IN [place], AND WILL BE BACK IN THE MORNING TO DISCUSS OPTIONS WITH PHYSICIANS AND THE NEED FOR REHAB VS GOING BACK TO THE [facility]. MR. GARDNER STATES THAT PT WALKS/WANDERS CONTINUOUSLY AROUND THE [facility]. I DISCUSSED WITH MR. GARDNER THE NEED FOR PT TO HAVE CONSTANT SUPERVISION DURING MEALS TO ENCOURAGE EATING, AND THAT PT SHOULD BE OFFERED FREQUENT SIPS OF WATER OR JUICE. MR. GARDNER DID LEAVE, PT REMAINS IN BED, LYING ON LEFT SIDE, EYES CLOSED, RESPIRATIONSE EVEN AND UNLABORED AT THIS TIME. CONTINUE TO MONITOR CLOSELY.
[2016-09-02 05:35] VITALS: BP 126/71
--- NOTE | 2016-09-02 06:04 | NUR ---
PT LYING IN BED ON LEFT SIDE, EYES CLOSED, RESPIRATIONS EVEN AND UNLABORED. CONTINUE TO MONITOR CLOSELY.
--- NOTE | 2016-09-02 07:00 | NUR ---
RECEIVED REPORT. ASSUMED CARE OF PATIENT. FULL BED ALARM ON, MENA MAT IN PLACE. PATIENT WITH EYES CLOSED. RESP EVEN AND UNLABORED. NO FAMILY AT BEDSIDE. REPORTED THAT PATIENT REQUIRED ONE ON ONE SUPERVISION LAST NOC DUE TO CONSTANTLY CLIMBING OUT OF BED. PATIENT IS CONFUSED X 4, ALZHEIMERS. RESTING WELL AT THIS TIME. NO DISTRESS.
[2016-09-02 07:25] VITALS: BP 116/67
[2016-09-02 11:21] VITALS: BP 119/74
[2016-09-02 11:25] LABS: BASOPHILS 0.5 % (0.0-2.0); EOSINOPHILS 4.7 % (0-7); HEMATOCRIT 35.6 % (36.0-48.0); HEMOGLOBIN 11.5 g/dL (12-16); IMMATURE GRANULOCYTES 0.7 % (0-5); LYMPHOCYTES 21.1 % (15-50); MCH 31.8 pg (26.0-34.0); MCHC 32.3 g/dL (31.0-37.0); MCV 98.3 fL (80.0-100.0); MEAN PLATELET VOLUME 11.4 fL (7.4-10.4); MONOCYTES 9.1 % (2-11); NEUTROPHILS 63.9 % (40-80); RBC 3.62 10x6/uL (4.00-5.40); RDW 14.8 % (11.5-14.5); WBC 5.6 10x3/uL (4.8-10.8)
[2016-09-02 11:27] LABS: PLATELET COUNT 179 10x3/uL (130-400)
[2016-09-02 11:32] LABS: CALC OSMOLALITY 290 mosm/kg (275-300); CALCIUM 8.8 mg/dL (8.5-10.1); CARBON DIOXIDE 31.6 mmol/L (21.0-32.0); CHLORIDE - SERUM 107 mmol/L (98-107); CREATININE - SERUM 0.7 mg/dL (0.6-1.3); GLUCOSE 92 mg/dL (74-106); POTASSIUM - SERUM 3.3 mmol/L (3.5-5.1); SODIUM 145 mmol/L (136-145); UREA NITROGEN 18 mg/dL (7-18); eGFR NON AFRICAN AMERICAN 87 mL/min (90-120)
--- NOTE | 2016-09-02 14:02 | NUR ---
Nutrition follow-up: Diet changed to regular solids with honey thick liquids due to pts advanced age. RDN ordered Magic cup and chocolate Mighty Shakes with meals per family request. Pts po intake ~60% average of meals Labs reviewed Wt: 87# Pt with good po intake at most meals as long as someone feeds her. RDN following.
[2016-09-02 15:33] VITALS: BP 104/58
--- NOTE | 2016-09-02 16:31 | NUR ---
Patient Name: JUAN M GARDNER Encounter No: [id number] : 1945 Primary Insurance: MEDICARE A & B Anticipated DC Date: 09-03-2016 Planned Disposition: Assisted Living External Planned Provider: [facility] DCP follow-up note: CM SPOKE TO MILLY BERRY WHO ANTICIPATES DISCHARGE TOMORROW. CM CALLED AND SPOKE TO GORDON AT THE [facility] WHO WILL COME AND ASSESS PT TODAY FOR RETURN TOMORROW. CM SPOKE TO PT'S SPOUSE IN ROOM WHO REPORTS AGREEMENT WITH DISCHARGE TOMORROW FOR PT TO GO BACK TO [facility]. SPOUSE TO TRANSPORT. GORDON OF [facility] ARRIVED TO ASSESS PT, CM PROVIDED CLINICAL UPDATE CHART NOTES. FOR DISCHARGE, NURSE REPORT TO BE CALLED TO THE [facility] AT [phone]; FAX DISCHARGE INFORMATION TO THE [facility] AT [phone]. PT'S SPOUSE REPORTS ABILITY TO TRANSPORT PT BACK TO [facility] AT DISCHARGE. Facility Worker: Alfa Melvin
[2016-09-02 22:28] VITALS: BP 130/51
[2016-09-03 00:59] VITALS: BP 123/58
--- NOTE | 2016-09-03 03:45 | NUR ---
19:00 - PT AWAKE, ALERT, CONFUSED, DISORIENTED, TRYING TO CLIMB OUT OF BED. PT IS AGITATED, SHOUTING INCOHERENT WORDS, REFUSING TO BE REDIRECTED OR BEING PLACED BACK IN BED. PT EVENTUALLY DID CALM DOWN ON HER OWN, WITHOUT HAVING TO BE MEDICATED AFTER APPROXIMATELY ONE HOUR. ANNETTA SHER WAS PRESENT WAS I DURING THIS TIME. CHRISTOS DID ONE ON ONE CONTINUOUS SUPERVISION FOR ONE HOUR WHILE I FINISHED GETTING REPORT FROM DAY SHIFT NURSE, FARZANA LONG. BED ALARM ON, MENA MAT ON AND IN PLACE. BED LOW, SIDE RAILS X 3, CALL LIGHT IN REACH, HOB 20 DEGREES. CONTINUE TO MONITOR CLOSELY.
[2016-09-03 05:21] VITALS: BP 138/76
--- NOTE | 2016-09-03 06:24 | NUR ---
PT LYING IN BED, EYES CLOSED, RESPIRATIONS EVEN AND UNLABORED. CONTINUE TO MONITOR. BED LOW, CALL LIGHT IN REACH, SIDE RAILS X 3, HOB 10 DEGREES. BED ALARM ON.
[2016-09-03 08:00] VITALS: BP 122/57
--- NOTE | 2016-09-03 09:00 | NUR ---
Received patient lying in bed, confused and disoriented times four, bed alarm in place. No distress. Spouse has arrived and wants to have patient discharged back to [facility] this am, he wants to transport her there himself. electronic funds transfer coordinator working on dc.
--- NOTE | 2016-09-03 09:40 | NUR ---
Cooperative with assessment and medications, discharge information explained to spouse, verbalized understanding. Contacted the [facility], report given to receiving nurse Kimberlee.
--- NOTE | 2016-09-03 10:00 | NUR ---
Discharge back to [facility], transported per spouse.
--- NOTE | 2016-09-03 10:42 | NUR ---
Patient Name: JUAN M GARDNER Encounter No: [id number] : 1945 Primary Insurance: MEDICARE A & B Anticipated DC Date: 09-03-2016 Planned Disposition: Assisted Living External Planned Provider: [facility] DCP follow-up note: CM CALLED AND SPOKE TO GORDON AT THE [facility], , WHO REPORTS [facility] WILL ACCEPT PT TODAY AND PT'S SPOUSE TO TRANSPORT. CM FAXED DISCHARGE INFORMATION TO THE [facility] AT [phone].. FOR DISCHARGE, NURSE REPORT TO BE CALLED TO WINSTON AT THE [facility] AT [phone] [place] Seamer: Alfa Melvin
--- NOTE | 2016-10-21 09:49 | DS ---
PATIENT:JUAN M GARDNER :[birth year] MEDICAL RECORD: [id number] DISCHARGE SUMMARY ADMISSION DATE: 08/25/16 DISCHARGE DATE: 09/03/16 DATE OF ADMISSION: 08/25/2016 DATE OF DISCHARGE: 09/03/2016 DIAGNOSES: 1. Alzheimer dementia. 2. Urinary tract infection. 3. Acute dehydration. 4. Hypernatremia. 5. Altered mental status. 6. Moderate pharyngeal dysphagia. CONSULTS: Bigg Obando MD. IMAGIN. Swallow evaluation, which shows moderate pharyngeal dysphagia. 2. Chest x-ray that shows chronic COPD changes. HOSPITAL COURSE: Full H&P is listed elsewhere in the chart for this 71-year-old patient who was admitted from the [facility] with altered mental status. Initial evaluation in the Emergency Department revealed FLOR secondary to inner volumes vascular depletion with elevated sodium level. She was admitted to the inpatient setting, started on IV hydration. She was also noted to have a UTI and was started on broad-spectrum antibiotics. She was admitted into the intensive care unit and Dr. Bigg Obando was consulted to help with management of her kidney injury and electrolyte abnormalities. The patient's clinical condition did improve with broad-spectrum antibiotic therapy. Her antibiotics were deescalated. She was moved to the regular nair. She underwent a swallow eval, was noted to have some pharyngeal dysphagia, was started on some thickened liquids for which she did tolerate and it showed no evidence of aspiration. She was thought to be stable for discharge back to the [facility] on a regular thickened diet with activities as tolerated. She would follow up in the outpatient setting. TRANSINT:[id number] Voice Confirmation ID: [id number] DOCUMENT ID: [id number] Dictated By: NURY GRIDER I have interviewed/examined the above patient and agree with these documented findings. ERNESTINE MEEKS MD at 1421 at 0948 CC: [id number] DICTATION DATE: 10/15/16 0845 FORK LIFT MECHANIC: 10/16/16 0051 DIS IN 09/03/16 [facility] [address] [place] [address]
== END 2016-09-03 10:00 | disposition home or self-care (01) | DRG 682 ==
LOC: D.ER 13:26 → D.M2 16:57
PROVIDERS: Emergency Medicine; Family Medicine Adult Medicine; Internal Medicine Nephrology; ADMIT Family Medicine
PROC: 0T9B70Z Drainage of Bladder with Drainage Device, Via Natural or Artificial Opening (ICD-10-PCS; principal; 2016-08-25)
DX: N17.9 Acute kidney failure, unspecified (principal); E43 Unspecified severe protein-calorie malnutrition; G93.41 Metabolic encephalopathy; E87.0 Hyperosmolality and hypernatremia; N39.0 Urinary tract infection, site not specified; Z68.1 Body mass index [BMI] 19.9 or less, adult; E86.9 Volume depletion, unspecified; K59.09 Other constipation; J30.9 Allergic rhinitis, unspecified; F32.9 Major depressive disorder, single episode, unspecified; G30.9 Alzheimer's disease, unspecified; F02.80 Dementia in other diseases classified elsewhere, unspecified severity, without behavioral disturbance, psychotic disturbance, mood disturbance, and anxiety; J44.9 Chronic obstructive pulmonary disease, unspecified; B96.20 Unspecified Escherichia coli [E. coli] as the cause of diseases classified elsewhere; E87.6 Hypokalemia; E86.0 Dehydration; R41.0 Disorientation, unspecified

== ENCOUNTER 2016-09-08 13:04 | Emergency (ER) | payer MEDICARE, BC ==
[2016-08-26 12:25] VITALS: BMI 11.9
[~2016-09-08 13:04] MED LIST changes: +ARICEPT5 MG PO; +ATIVAN1 MG PO
== END 2016-09-08 17:35 | disposition home or self-care (01) ==
LOC: D.ER 13:04
DX: S70.01XA Contusion of right hip, initial encounter (principal); W06.XXXA Fall from bed, initial encounter; Y93.89 Activity, other specified; Y92.129 Unspecified place in nursing home as the place of occurrence of the external cause; R41.82 Altered mental status, unspecified; G30.9 Alzheimer's disease, unspecified; F02.80 Dementia in other diseases classified elsewhere, unspecified severity, without behavioral disturbance, psychotic disturbance, mood disturbance, and anxiety; J44.9 Chronic obstructive pulmonary disease, unspecified; F32.9 Major depressive disorder, single episode, unspecified; E87.6 Hypokalemia

== ENCOUNTER 2016-10-28 11:44 | Emergency (ER) | payer MEDICARE, BC ==
[2016-08-26 12:25] VITALS: BMI 11.9
== END 2016-10-28 13:00 | disposition home or self-care (01) ==
LOC: D.ER 11:44
DX: Z03.89 Encounter for observation for other suspected diseases and conditions ruled out (principal); R41.82 Altered mental status, unspecified; G30.9 Alzheimer's disease, unspecified; F02.80 Dementia in other diseases classified elsewhere, unspecified severity, without behavioral disturbance, psychotic disturbance, mood disturbance, and anxiety

== ENCOUNTER 2017-01-17 20:14 | Emergency (ER) | payer MEDICARE, BC ==
[2016-08-26 12:25] VITALS: BMI 11.9
== END 2017-01-18 00:15 | disposition home or self-care (01) ==
LOC: D.ER 20:14
DX: S01.81XA Laceration without foreign body of other part of head, initial encounter (principal); W06.XXXA Fall from bed, initial encounter; Y93.89 Activity, other specified; Y92.89 Other specified places as the place of occurrence of the external cause; S00.83XA Contusion of other part of head, initial encounter; R41.82 Altered mental status, unspecified; G30.9 Alzheimer's disease, unspecified; F02.80 Dementia in other diseases classified elsewhere, unspecified severity, without behavioral disturbance, psychotic disturbance, mood disturbance, and anxiety; J44.9 Chronic obstructive pulmonary disease, unspecified; F32.9 Major depressive disorder, single episode, unspecified

== ENCOUNTER 2017-03-31 22:44 | Emergency (ER) | payer MEDICARE, BC ==
[2016-08-26 12:25] VITALS: BMI 11.9
== END 2017-04-01 02:40 | disposition home or self-care (01) ==
LOC: D.ER 22:44
DX: S00.12XA Contusion of left eyelid and periocular area, initial encounter (principal); W06.XXXA Fall from bed, initial encounter; Y93.89 Activity, other specified; Y92.122 Bedroom in nursing home as the place of occurrence of the external cause; S50.811A Abrasion of right forearm, initial encounter; G30.9 Alzheimer's disease, unspecified; F02.80 Dementia in other diseases classified elsewhere, unspecified severity, without behavioral disturbance, psychotic disturbance, mood disturbance, and anxiety; J44.9 Chronic obstructive pulmonary disease, unspecified; H57.12 Ocular pain, left eye; R60.0 Localized edema

== ENCOUNTER 2017-04-09 21:14 | Emergency (ER) | payer MEDICARE, BC ==
[2016-08-26 12:25] VITALS: BMI 11.9
== END 2017-04-10 00:29 ==
LOC: D.ER 21:14
DX: S01.511A Laceration without foreign body of lip, initial encounter (principal); W19.XXXA Unspecified fall, initial encounter; Y92.122 Bedroom in nursing home as the place of occurrence of the external cause; S00.83XA Contusion of other part of head, initial encounter; G30.9 Alzheimer's disease, unspecified; F02.80 Dementia in other diseases classified elsewhere, unspecified severity, without behavioral disturbance, psychotic disturbance, mood disturbance, and anxiety; J44.9 Chronic obstructive pulmonary disease, unspecified